=== PATIENT | female | born 1990 | race Caucasian/White ===

== ENCOUNTER 2018-01-05 14:48 | Emergency (ER) | payer OTHER ==
[~2018-01-05] VITALS: Ht 157.5 cm; Wt 82.7 kg
[2018-01-05 14:52] VITALS: Ht 157.5 cm; Wt 82.7 kg
[2018-01-05 17:53] LABS: microscopic required? NO
[2018-01-05 17:59] LABS: UA SPECIFIC GRAVITY >=1.030 (1.005-1.035); urine erythrocyte NEGATIVE (NEGATIVE)
[2018-01-05 18:15] LABS: BASOPHIL % 0.2 % (0-2); PLATELET COUNT 240 x10^3mcL (130-400); RED CELL DISTRIBUTION WIDTH 13.1 % (11.5-14.5)
[2018-01-05 19:40] VITALS: BP 115/76
== END 2018-01-05 19:40 | disposition home or self-care (01) ==
LOC: ED 14:48
PROVIDERS: Emergency Medicine
PROC: BY49ZZZ Ultrasonography of First Trimester, Single Fetus (ICD-10-PCS; principal; 2018-01-05)
DX: O20.0 Threatened abortion (principal); Z3A.01 Less than 8 weeks gestation of pregnancy
CPT/HCPCS: 36415

== ENCOUNTER 2019-05-31 10:16 | Emergency (ER) | payer SELFPAY ==
[~2019-05-31] VITALS: Ht 157.5 cm; Wt 93.9 kg
[2019-05-31 10:29] VITALS: Ht 157.5 cm; Wt 93.9 kg
[2019-05-31 11:04] VITALS: BP 113/79
== END 2019-05-31 11:04 | disposition home or self-care (01) ==
LOC: ED 10:16
DX: J20.9 Acute bronchitis, unspecified (principal); Z98.890 Other specified postprocedural states